=== PATIENT | female | born 1985 ===

== ENCOUNTER 2018-07-26 21:59 | Outpatient (CLI) | payer SELFPAY | END 2018-07-26 22:00 | disposition EMS.NT | LOC: EMS 21:59 | PROVIDERS: ATTEND Surgery | DX: M54.2 Cervicalgia (principal); Y04.8XXA Assault by other bodily force, initial encounter; Y92.009 Unspecified place in unspecified non-institutional (private) residence as the place of occurrence of the external cause ==